=== PATIENT | male | born 1980 | race Caucasian/White ===

== ENCOUNTER 2017-05-31 10:35 | Emergency (ER) | payer MEDICAID, SELFPAY ==
[2017-05-31 10:37] VITALS: BP 155/100; PULSE 114; RESP 16; TEMP 36.2; O2SAT 95; BMI 20.5
--- NOTE | 2017-05-31 11:03 | ED.DCSUM_ITS ---
- ER Visit Summary Date of Service: 05/31/17 Chief Complaint: [] Irritated oral cavity tissue after scrubbing mouth to get rid of thrush History of Present Illness: The patient is a 36 M [] indicates he was diagnosed with thrush related to the use of an oral steroid inhaler, oral steroids for COPD he was put on Chlortrimazole oral medications and told to use that spit and swallow but he is also been scrubbing his mouth and tongue with a toothbrush and he feels his tissue is very irritated and somehow he thinks he may have contracted strep throat although has had no exposures he is otherwise been doing well no fever no cough his breathing and the rest of his health is unremarkable Physical Examination: [] Vitals are within normal range she is in no distress his oral cavity is unremarkable there does appear to be some irritation to the mucosal tissue possibly from the scrubbing he has been doing with a toothbrush there is no signs of exudate no stridor or drooling no signs of abscess no blisters the oral cavity is just slightly red diffusely the tongue is unremarkable as well chronically looks well he speaking full sentences with no findings of any kind please note he has no immunocompromising factors Test Results: [] Emergency Department Course and Treatment: [] Do a strep throat rapid swab at his request I explained to him this is negative he can follow with his physicians he should stop using the toothbrush and simply use the Chlortrimazole swish it around his mouth gargle and spit it out and follow-up with his physicians he understands Treatment Plan: [] Disposition: [] Home stable Impression: [] Mouth irritation related to oral thrush and scrubbing mouth with toothbrush This note was generated with [employer] dictation software. It may contain incorrect words, spelling, and punctuation that were not noted in review of the chart prior to signing ED Disposition - Plan for ED Patient: Chief Complaint: Other, Pain/Inj Referrals: Reji Bender MD [Primary Care Provider] -
--- NOTE | 2017-05-31 11:03 | ED.DEP ---
ED Disposition - Plan for ED Patient: Chief Complaint: Other, Pain/Inj Instructions: Oral Thrush Referrals: Reji Bender MD [Primary Care Provider] -
== END 2017-05-31 12:28 | disposition home or self-care (01) ==
LOC: ED 11:21
PROVIDERS: Emergency Provider Emergency Medicine; Family Provider Family Medicine; PCP Family Medicine
DX: B37.0 Candidal stomatitis (principal); J44.9 Chronic obstructive pulmonary disease, unspecified
CPT/HCPCS: 87880; 99282

== ENCOUNTER 2019-03-29 09:50 | Emergency (ER) | payer OTHER, MEDICAID, SELFPAY ==
[2019-03-29 09:51] VITALS: BP 147/75; PULSE 75; RESP 16; TEMP 36.8; O2SAT 99; BMI 21.2
--- NOTE | 2019-03-29 11:06 | ED.DCSUM_ITS ---
History of Present Illness Chief Complaint: Eye Problem Informant: Patient Onset: Yesterday Narrative: Patient was using a circular saw to cut wood yesterday. He finished up and a few minutes later was at the store and he thinks something went into his right eye. Believes he had some wood particles in his eyebrows or eyelashes that fell in. Since that time he has had some pain foreign body sensation tearing and light sensitivity. He does not wear contacts or glasses. Past Medical History - Allergies and Home Meds Allergies/Adverse Reactions: Allergies No Known Allergies Allergy (Verified 05/31/17 11:06) Primary Care Physician: Reji Bender MD [Primary Care Provider] - Smoking Status: Current every day smoker Review of Systems General: Denies: Chills, Fever, Sweats Eyes: Reports: Blurred vision - right, - - Mild photophobia. Denies: Visual bina nges - bilaterally, Diplopia ENT: Denies: Rhinorrhea, Sore throat Cardiovascular: Denies: Chest pain, Palpitations Respiratory: Denies: Dyspnea, Cough, Dyspnea on exertion Gastrointestinal: Denies: Abdominal pain, Nausea, Vomiting, Diarrhea, Melena, Hematochezia Genitourinary: Denies: Dysuria, Hematuria, Frequency Musculoskeletal: Denies: Back pain, Extremity Pain Skin: Denies: Rash, Wounds Neurological: Denies: Headache, Weakness, Numbness Physical Exam Vital Signs/Narrative: Vital Signs Temp Pulse Resp BP Pulse Ox 03/29/19 09:51 98.2 F 75 16 147/75 H 99 Inital Vital Signs reviewed: Yes General: Well nourished, Well developed, No Acute Distress Head: Normocephalic, Atraumatic Eyes: Perrl, EOMI, - - There are 3 small areas of fluorescein dye uptake in the 10 to 12 o'clock position of the eye. Eyelids were everted I do not see any obvious foreign bodies. The conjunctiva is injected. Anterior chambers deep and quiet. Negative Yudith sign. ENT: Moist mucous membranes, No rhinorrhea Neck: Supple, Nontender Cardiovascular: Regular rate, Regular rhythm, No murmurs Respiratory: No distress, CTA bilaterally, Chest nontender Abdomen: Soft, Nontender, Nondistended, Normal bowel sounds Back: Nontender, Normal Inspection Extremities: Nontender, No edema Skin: Normal color, No rash Neurological: Alert, Oriented x3, Cranial nerves II-XII grossly intact, Normal Strength, Normal Sensation Psychological: Normal affect, Normal Mood ED Disposition - Plan for ED Patient: Disposition: Home or Assisted Living Diagnosis: Corneal abrasion, right Instructions: ED Corneal Abrasion Prescriptions: Gentamicin Ophthalmic Drops [Garamycin Ophthalmic Drops] 2 drp EACH EYE Q4 5 Days #1 opth.btl Prescription Printed Referrals: Alphonse Ndiaye MD [STAFF PHYSICIAN] - (in 3 days for wound check to ensure resolution)
[2019-03-29] MEDS: Fluorescein 1 MG STRIP 1 STRIP RIGHT EYE (11:25)
[2019-03-29] MEDS: Tetracaine 0.5% Ophthalmic Bottle 1 DRP RIGHT EYE (11:25)
[2019-03-29 11:26] VITALS: BP 126/74; PULSE 59; RESP 16; O2SAT 97
== END 2019-03-29 11:26 | disposition home or self-care (01) ==
LOC: ED 11:17
PROVIDERS: Emergency Provider Emergency Medicine; PCP Family Medicine
DX: S05.01XA Injury of conjunctiva and corneal abrasion without foreign body, right eye, initial encounter (principal); X58.XXXA Exposure to other specified factors, initial encounter; Y93.9 Activity, unspecified; Y92.9 Unspecified place or not applicable; F17.200 Nicotine dependence, unspecified, uncomplicated
CPT/HCPCS: 99283

== ENCOUNTER 2019-07-16 01:41 | Emergency (ER) | payer OTHER, SELFPAY ==
[2019-07-16 01:42] VITALS: BP 145/104; PULSE 88; RESP 16; TEMP 37.3; O2SAT 95; BMI 19.3
--- NOTE | 2019-07-16 02:07 | RAD_ITS ---
STUDY: X-RAY - LEFT RADIUS AND ULNA REASON FOR EXAM: Male, 38 years old. Post exertional left forearm pain TECHNIQUE: 2 view(s) of the forearm. COMPARISON: None. FINDINGS: There is no demonstrated soft tissue swelling. Normal visualized distal humerus. Normal radius. Normal ulna. Normal visualized bones of the wrist and hand. Joints are in normal alignment. No periarticular degenerative or inflammatory change. RAD/Forearm 2 Views IMPRESSION: Normal x-ray examination of the radius and ulna. Electronically Signed: Corey Rodríguez MD at 2:25 EDT Tel , Service support ,
--- NOTE | 2019-07-16 02:08 | ED.DCSUM_ITS ---
- ER Visit Summary Date of Service: 07/16/19 Chief Complaint: [Injury to left forearm] History of Present Illness: The patient is a 38 M [presents the emergency department complaint of an injury to his left forearm that occurred this evening. Patient states that he was doing some work in his basement when somebody let go of some boards that they were trying to move and he came crashing down on his left forearm. Patient is right-hand dominant. Patient states he had hard time moving his fingers initially. He has been drinking tonight. His tetanus shot was 3 years ago. He has no medical history other than asthma and COPD.] Physical Examination: [Left forearm-patient has some superficial abrasions over the radial volar surface of the mid forearm. Patient has some tenderness to palpation over the distal radius and ulna diffusely. No obvious deformity. 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 dictation software. It may contain incorrect words, spelling, and punctuation that were not noted in review of the chart prior to signing ED Disposition - Plan for ED Patient: Referrals: Reji Bender MD [Primary Care Provider] -
--- NOTE | 2019-07-16 02:18 | ED.DEP ---
ED Disposition - Plan for ED Patient: Instructions: ED EXTREMITY CONTUSION Upper Referrals: Reji Bender MD [Primary Care Provider] - 5-7 Days
[2019-07-16 02:31] VITALS: RESP 16
== END 2019-07-16 02:38 | disposition home or self-care (01) ==
LOC: ED 02:35
PROVIDERS: Emergency Provider Emergency Medicine; PCP Family Medicine
DX: S50.12XA Contusion of left forearm, initial encounter (principal); S50.812A Abrasion of left forearm, initial encounter; W22.8XXA Striking against or struck by other objects, initial encounter; Y93.9 Activity, unspecified; Y92.9 Unspecified place or not applicable; J44.9 Chronic obstructive pulmonary disease, unspecified; Z72.0 Tobacco use
CPT/HCPCS: 73090; 99282

== ENCOUNTER 2020-03-08 09:16 | Emergency (ER) | payer SELFPAY ==
[2020-03-08 09:18] VITALS: BP 146/92; PULSE 84; RESP 16; TEMP 36.1; O2SAT 99; BMI 20.5
--- NOTE | 2020-03-08 10:22 | ED.VIS.GEN ---
History of Present Illness Chief Complaint: Upper Extremity Injury Informant: Patient Narrative: 39-year-old male presenting with right elbow and forearm pain. Patient states he injured this while moving a washer about 5 weeks ago. Has been persistent. He is using ibuprofen at home which sometimes relieves his pain. He denies any direct trauma. Patient does not have a PCP or health insurance and therefore has not followed up outpatient. Numbness and tingling. Past Medical History - Allergies and Home Meds Allergies/Adverse Reactions: Allergies No Known Allergies Allergy (Verified 03/08/20 09:18) Primary Care Physician: Reji Bender MD [Primary Care Provider] - Prior records reviewed: Yes Past Medical History: - - Denies significant medical problems Lives: Spouse/ Significant Other Smoking Status: Current every day smoker Alcohol: None Drugs: None Review of Systems General: Denies: Chills, Fever, Sweats Eyes: Denies: Visual changes - bilaterally, Diplopia ENT: Denies: Rhinorrhea, Sore throat Cardiovascular: Denies: Chest pain, Palpitations Respiratory: Denies: Dyspnea, Cough, Sputum, Dyspnea on exertion, Orthopnea, Paroxysmal nocturnal dyspnea, -, - Gastrointestinal: Denies: Abdominal pain, Nausea, Vomiting, Diarrhea, Melena, Hematochezia Musculoskeletal: Reports: - - Right forearm and elbow pain. Denies: Neck pain, Back pain Skin: Denies: Rash, Abscess Neurological: Denies: Headache, Weakness Psych: Denies: Depression, Anxiety Physical Exam Vital Signs/Narrative: Vital Signs Temp Pulse Resp BP Pulse Ox 03/08/20 09:18 97 F L 84 16 146/92 H 99 Inital Vital Signs reviewed: Yes General: Well nourished, Well developed, No Acute Distress Head: Normocephalic, Atraumatic Eyes: Perrl, EOMI ENT: Moist mucous membranes, No rhinorrhea Cardiovascular: Regular rate, Regular rhythm Respiratory: No distress, CTA bilaterally Extremities: - - Is to palpation right lateral forearm. No olecranon tenderness. No ecchymosis or rash.. Negative for: Edema Skin: Normal color, No rash. Negative for: Cyanosis, Diaphoresis Neurological: Alert, Oriented x3 Psychological: Normal affect, Normal Mood Diagnostic/Tx/Re-eval - Medical Decision Making Patient presents with right forearm pain which is proximal. He denies any direct trauma. He states he strained this while moving a washer upstairs 5 weeks ago. He has not had any follow-up due to lack of insurance and lack of PCP. He denies any paresthesias. He states the pain is intermittent and worse when he is using his right hand because he is right-hand dominant. I do not believe the patient needs any imaging today. He was counseled to use compression, ice, anti-inflammatories. I will send a prescription for Flexeril as well to be used as needed. Patient amenable this plan. Patient stable for discharge at this time. Impression: 1. Right forearm strain ED Disposition - Plan for ED Patient: Disposition: Home or Assisted Living Instructions: ED Muscle Strain, Extremity Referrals: Reji Bender MD [Primary Care Provider] -
== END 2020-03-08 10:34 | disposition home or self-care (01) ==
PROVIDERS: Emergency Provider Student in an Organized Health Care Education/Training Program; PCP Family Medicine
DX: S56.911A Strain of unspecified muscles, fascia and tendons at forearm level, right arm, initial encounter (principal); X50.0XXA Overexertion from strenuous movement or load, initial encounter; Y93.9 Activity, unspecified; Y92.9 Unspecified place or not applicable; F17.200 Nicotine dependence, unspecified, uncomplicated
CPT/HCPCS: 99282

== ENCOUNTER 2021-09-28 15:09 | Emergency (ER) | payer MEDICAID, SELFPAY ==
[2021-09-28 15:10] VITALS: BP 152/104; PULSE 116; RESP 15; TEMP 37; O2SAT 97; BMI 21.3
--- NOTE | 2021-09-28 15:32 | EDS_ITS ---
HPI History of Present Illness Chief Complaint: Diarrhea Informant: patient Narrative Narrative: 41-year-old male presenting to the emergency department with a chief complaint of abnormal bowel movement. Patient states that he is an alcoholic. Patient states that he is currently intoxicated. Unfortunately given that he is currently intoxicated is having a very difficult time putting together coherent thoughts. He notes that recently he had 9 days of diarrhea today had a bowel movement that looked like a lot of mucus. He states that the diarrhea was very dark. Patient notes that last week he had 1 hour of upper abdominal pain and has not returned. He notes that he has been exposed to multiple people who had COVID recently. He denies any current fever. He denies any bright red blood. [facility] Medical History (Updated 09/28/21 @ 16:[address] Orville Perez DO) Alcoholism Home Medications albuterol sulfate 90 mcg/actuation aerosol inhaler (Ventolin HFA) 1 puff inhalation Q6H PRN PRN Sob &/Or Wheezing 05/31/17 [History Last Taken Unknown] pantoprazole 40 mg tablet,delayed release (Protonix) 40 mg PO DAILY #30 tabs 09/28/21 [Rx Last Taken Unknown] Allergy/AdvReac Type Severity Reaction Status Date / Time No Known Allergies Allergy Verified 09/28/21 15:10 Social History (Updated 09/28/21 @ 15:[address] Orville Perez DO) Smoking Status: Current every day smoker tobacco type: cigarettes alcohol intake: current alcohol intake frequency: 3 or more drinks per day [facility] ED Constitutional Constitutional ED: Denies chills or weight loss Eyes Eyes: Denies change in vision or diplopia ENT ENT ED: Denies ear pain, rhinorrhea or sore throat Cardiovascular Cardiovascular: Denies chest pain, orthopnea, palpitations or racing heartbeat Respiratory/Chest Respiratory/Chest: Denies cough, dyspnea or orthopnea Gastrointestinal Gastrointestinal: Reports abdominal pain and diarrhea; Denies nausea or vomiting Genitourinary Genitourinary ED: Denies dysuria, hematuria or urinary frequency Musculoskeletal Musculoskeletal: Denies arthralgias or myalgias Integumentary Denies abscess or rash Neurologic Neurologic: Denies headache(s) or weakness Psychiatric Psychiatric: Denies anxiety, depression, suicidal ideation or suicidal thoughts Endocrine Endocrinology: Denies polydipsia, polyphagia or polyuria Allergic/Immunologic Allergic/Immunologic ED: Denies mouth swelling, tongue swelling or urticaria EXAM Physical Exam Const Vital Signs: 09/28/21 15:10 Temperature 98.6 F Temperature Source Temporal Pulse Rate 116 H Respiratory Rate 15 Blood Pressure 152/104 H Blood Pressure Mean 120 Pulse Ox 97 Oxygen Delivery Method Room Air Positive well nourished and well developed General Appearance ED: well developed HEENT Reports normocephalic, head/scalp atraumatic and moist mucous membranes Eyes PERRL and EOMs intact bilaterally Neck no lymphadenopathy, supple and no JVD Resp normal respiratory effort and clear to auscultation bilaterally Cardio regular rate, regular rhythm and no murmurs GI normal to inspection, nondistended, normoactive bowel sounds and non-tender Palpation: soft Back/Spine no CVA tenderness and normal ROM Extremity normal to inspection General Extremety ED: Negative for edema General Extremity: Negative for edema Neuro CN's II-XII intact bilaterally Neuro Narrative: Patient appears clinically intoxicated. Sensorium / Orientation: alert and orientation impaired Motor Exam: strength 5/5 throughout Psych mental status grossly normal Mood & Affect: Negative for depressed or tearful Skin no rashes or lesions noted and no wounds MDM MDM MDM Narrative Medical decision making narrative: Patient's COVID test is negative. White count 7.8 with hemoglobin 15.4 and platelet count 267. Lipase 389. Glucose 116 liver enzymes normal. The picture that the gentleman shows me of his bowel movement is very difficult really see and that its not in focus and taken from a distance. I do not see any bright red blood. I do think that the patient would probably benefit from a PPI as well as primary care follow-up. He is also advised that he should consider alcohol detox. Patient to return if worsening or concerns Lab Data Attestation: I reviewed the patient's lab results. Labs: Laboratory Results - last 24 hr 09/28/21 09/28/21 15:55 15:55 WBC 7.8 RBC 4.54 L Hgb 15.4 Hct 42.7 MCV 94.1 H MCH 33.9 H MCHC 36.1 H RDW Std Deviation 41.6 RDW Coeff of Alba 11.9 Plt Count 267 MPV 9.6 Immature Gran % (Auto) 0.100 Neut % (Auto) 48.9 Lymph % (Auto) 39.0 Sutter % (Auto) 9.3 Eos % (Auto) 1.9 Baso % (Auto) 0.8 Absolute Neuts (auto) 3.8 Absolute Lymphs (auto) 3.05 Nucleated RBC % 0 Sodium 137 Potassium 3.7 Chloride 104 Carbon Dioxide 25.0 Anion Gap 8 BUN 12 Creatinine 0.93 Estim Creat Clear Calc 95.93 Est GFR (MDRD) Af Amer 117 Est GFR (MDRD) Non-Af 97 BUN/Creatinine Ratio 13.0 Glucose 116 H Calcium 8.4 L Total Bilirubin 0.40 AST 32 ALT 36 Alkaline Phosphatase 81 Total Protein 7.7 Albumin 4.0 Globulin 3.7 Albumin/Globulin Ratio 1.1 Lipase 389 Discharge Plan Triage Chief Complaint: Diarrhea ED Provider: Orville Perez Dx/Rx/DC Orders Clinical Impression: Diarrhea, Acute alcoholic gastritis Instructions: Treating Gastritis Prescriptions: New pantoprazole [Protonix] 40 mg tablet,delayed release (DR/EC) 40 mg PO DAILY Qty: 30 0RF No Action albuterol sulfate [Ventolin HFA] 1 INHALER inhaler 1 puff inhalation Q6H PRN PRN (Reason: Sob &/Or Wheezing) Primary Care Provider: Reji Bender Referrals: Reji Bender MD [Primary Care Provider] - As soon as possible Disposition Disposition: Home, Self Care
[2021-09-28 16:06] LABS: Absolute Lymphocyte Count 3.05 X10^3/uL (0.83-4.51); Absolute Neutrophil Count 3.8 X10^3/uL (2.0-7.7); Basophil# 0.06 X10^3/uL; Basophil% 0.8 % (0-1); Eosinophil# 0.15 X10^3/uL; Eosinophils% 1.9 % (0-5); Hematocrit 42.7 % (40-54); Hemoglobin 15.4 g/dL (13.0-16.5); Lymphocyte # 3.05 X10^3/ul (0.83-4.51); Mean Corp Hgb Conc 36.1 g/dL (32-36); Mean Corpuscular Hgb 33.9 pg (27.0-32.0); Mean Corpuscular Volume 94.1 fL (80-94); Mean Platelet Vol. 9.6 fl (6.2-12.0); Monocyte# 0.73 X10^3/uL; Monocyte% 9.3 % (0-10); NRBC Flagged by Analyzer 0 % (0-5); Neutrophil # 3.83 X10^3/uL (2.7-7.7); Neutrophil % 48.9 % (47-70); Platelet Count 267 K/mm3 (150-450); RBC Distribution Width CV 11.9 % (11.6-14.6); RBC Distribution Width SD 41.6 fl (35.1-43.9); Red Blood Count 4.54 M/mm3 (4.6-6.2); White Blood Count 7.8 K/mm3 (4.4-11.0)
[2021-09-28 16:24] LABS: ALB/GLOB Ratio 1.1 RATIO (0.9-2.4); AST(SGOT) 32 U/L (15-37); Alanine Aminotransfer ALT/SGPT 36 U/L (16-61); Alkaline Phosphatase 81 U/L (45-117); Anion Gap 8 (5-15); BUN 12 mg/dL (7-18); Calcium,Total 8.4 mg/dL (8.5-10.1); Chloride 104 mmol/L (98-107); Creatinine, Serum 0.93 mg/dL (0.70-1.30); EST Glomerular Filtration Rate 97 mL/min (>60); Est Glom Filt Rate - Afr Amer 117 mL/min (>60); Estimated Creatinine Clearance 95.93 ml/min; Globulin 3.7 g/dL (2.2-4.2); Glucose 116 mg/dL (74-106); Lipase 389 U/L (73-393); Potassium 3.7 mmol/L (3.5-5.1); Protein, Total 7.7 g/dL (6.4-8.2); Sodium Level 137 mmol/L (136-145)
[2021-09-28 16:46] VITALS: BP 127/89; PULSE 90; RESP 16; O2SAT 97
== END 2021-09-28 16:51 | disposition home or self-care (01) ==
PROVIDERS: Emergency Provider Emergency Medicine; PCP Family Medicine; Visit Provider Emergency Medicine
DX: K29.20 Alcoholic gastritis without bleeding (principal); F10.229 Alcohol dependence with intoxication, unspecified; F17.210 Nicotine dependence, cigarettes, uncomplicated; Y90.9 Presence of alcohol in blood, level not specified
CPT/HCPCS: 80053; 83690; 85025; 87811; 99283; A4216